=== PATIENT | female | born 1985 | race Caucasian/White ===

== ENCOUNTER 2016-09-20 15:29 | Emergency (ER) | payer MEDICAID ==
[~2016-09-20] VITALS: Ht 170.2 cm; Wt 59.9 kg
--- NOTE | 2016-09-20 16:13 | NUR ---
Pt evaluated by MD for tooth ache, a/o x 4, vss, nad noted, ambulates w/ steady gait. Patient discharged home in stable conditon. Written and verbal after care instructions given. Patient verbalizes understanding of instructions.
[2016-09-20 16:15] VITALS: BP 106/78
== END 2016-09-20 16:16 | disposition home or self-care (01) ==
LOC: ER 15:30
DX: K08.89 Other specified disorders of teeth and supporting structures (principal); J45.909 Unspecified asthma, uncomplicated; Z88.0 Allergy status to penicillin; Z88.6 Allergy status to analgesic agent; F17.200 Nicotine dependence, unspecified, uncomplicated
CPT/HCPCS: A4663

== ENCOUNTER 2016-11-15 14:08 | Emergency (ER) | payer SELFPAY ==
[~2016-11-15] VITALS: Ht 170.2 cm; Wt 56.7 kg
[2016-11-15 15:00] LABS: *URINE HCG, QUAL NEGATIVE (NEGATIVE)
[2016-11-15] MEDS ORDERED: HYDROCODONE/APAP 5-325MG TABLET PO ONE (15:00)
[2016-11-15] MEDS ORDERED: ONDANSETRON ODT 4 MG TAB.RAPDIS SL ONE (15:00)
[2016-11-15 15:01] LABS: *BILIRUBIN,URIN NEGATIVE (NEGATIVE); *BLOOD, URINE NEGATIVE (NEGATIVE); *CLARITY,URINE CLEAR (CLEAR); *COLOR,URINE LIGHT YELLOW (YELLOW); *KETONES,URINE NEGATIVE (NEGATIVE); *PROTEIN,URINE NEGATIVE (NEGATIVE); *UROBILINOGEN,URINE 0.2 E.U./dl (NORMAL); LEUKOCYTE ESTERASE ,URINE NEGATIVE (NEGATIVE); NITRITE, URINE NEGATIVE (NEGATIVE); PH,URINE 7.5 (5.0-8.0); UGLUCOSE NEGATIVE (NEGATIVE)
[2016-11-15 15:08] LABS: SQUAMOUS EPITHELIAL CELL,UR FEW /HPF (NONE SEEN); WBC,URINE 0-3 /HPF (0-3)
[2016-11-15] MEDS ORDERED: ONDANSETRON ODT 4 MG TAB.RAPDIS ONE (15:17)
[2016-11-15] MEDS ORDERED: HYDROCODONE/APAP 5-325MG TABLET ONE (15:18)
[2016-11-15] MEDS ORDERED: MORPHINE SULFATE 4 MG/1 ML DISP.SYRIN IM ONE (15:45)
[2016-11-15] MEDS ORDERED: MORPHINE SULFATE 4 MG/1 ML DISP.SYRIN ONE (16:00)
[2016-11-18 11:09] LABS: *GC NAA Negative (Negative); *TRIC.VAG. NAA Negative (Negative)
== END 2016-11-15 16:24 | disposition home or self-care (01) ==
LOC: ER 14:08
DX: R10.2 Pelvic and perineal pain (principal); J45.909 Unspecified asthma, uncomplicated; Z88.0 Allergy status to penicillin; Z88.6 Allergy status to analgesic agent; F17.200 Nicotine dependence, unspecified, uncomplicated
CPT/HCPCS: 76856; 81001; 84703; 87491; 96372; 99285; A4663; J2270; Q0162

== ENCOUNTER 2016-11-16 20:37 | Emergency (ER) | payer SELFPAY ==
[~2016-11-16] VITALS: Ht 172.7 cm; Wt 61.2 kg
[2016-11-16] MEDS ORDERED: ONDANSETRON 4 MG/2 ML VIAL IV ONE (21:00)
[2016-11-16] MEDS ORDERED: IV NORMAL SALINE 1000 ML BAG IV ONE (21:00)
[2016-11-16] MEDS ORDERED: HYDROMORPHONE 1 MG/1 ML DISP.SYRIN IV ONE ×2 (21:00→22:15)
[2016-11-16] MEDS ORDERED: HYDROMORPHONE 1 MG/1 ML DISP.SYRIN ONE ×2 (21:18→22:21)
[2016-11-16] MEDS ORDERED: ONDANSETRON 4 MG/2 ML VIAL ONE ×2 (21:19→22:21)
[2016-11-16 21:24] LABS: BASOPHILS % (AUTO) 0.5 % (0.0-2.0); EOSINOPHILS # (AUTO) 0.3 K/uL (0.0-0.7); HEMATOCRIT 41.2 % (37-47); HEMOGLOBIN 13.8 G/DL (12.0-16.0); LYMPHOCYTES # (AUTO) 2.1 K/UL (0.8-4.8); LYMPHOCYTES % (AUTO) 27.8 % (20.5-51.5); MEAN CORPUSCULAR HEMOGLOBIN 31.2 UUG (27.0-31.0); MEAN CORPUSCULAR HGB CONC 33 g/dL (32.0-37.0); MEAN CORPUSCULAR VOLUME 93.2 FL (81.0-99.0); MONOCYTES # (AUTO) 0.6 K/UL (0.1-1.30); MONOCYTES % (AUTO) 7.8 % (0.0-11.0); NEUTROPHILS # (AUTO) 4.4 K/UL (1.8-8.9); NEUTROPHILS % (AUTO) 59.9 % (38.5-71.5); PLATELET COUNT (AUTO) 102 K/UL (150-450); RED BLOOD CELL COUNT(AUTO) 4.42 MIL/UL (4.2-5.4); WHITE BLOOD COUNT (AUTO) 7.4 K/UL (4.0-11.2)
--- NOTE | 2016-11-16 21:28 | NUR ---
Pt ambulated to room with steady gait and changed into gown. Pt was seen here yesterday for RLQ pain and was told to return if the pain worsened. Pt sts she cant even touch her RLQ due to pain. Pt seen by Dr. Gold. IV established, labs drawn and sent. Pt medicated for pain and nausea, will monitor for effects of medication. Fluid bolus infusing freely to gravity. Pt resting in position of comfort for self.
[2016-11-16 21:33] LABS: BILIRUBIN,DIRECT 0.1 mg/dL (0.0-0.2); BILIRUBIN,TOTAL 0.4 mg/dL (0.2-1.0); CREATININE 0.8 mg/dL (0.6-1.3); POTASSIUM 3.8 mmol/L (3.5-5.1); TOTAL PROTEIN, SERUM 7.4 g/dL (6.4-8.2)
--- NOTE | 2016-11-16 21:41 | NUR ---
Pt to CT via jul[facility]
[2016-11-16 21:56] LABS: *BILIRUBIN,URIN NEGATIVE (NEGATIVE); *BLOOD, URINE NEGATIVE (NEGATIVE); *CLARITY,URINE CLEAR (CLEAR); *COLOR,URINE YELLOW (YELLOW); *KETONES,URINE NEGATIVE (NEGATIVE); *PROTEIN,URINE NEGATIVE (NEGATIVE); *UROBILINOGEN,URINE 0.2 E.U./dl (NORMAL); LEUKOCYTE ESTERASE ,URINE NEGATIVE (NEGATIVE); NITRITE, URINE NEGATIVE (NEGATIVE); PH,URINE 6.5 (5.0-8.0); UGLUCOSE NEGATIVE (NEGATIVE)
--- NOTE | 2016-11-16 21:59 | NUR ---
Pt returned from CT via gurney. Pt sts pain improved but only slightly. Pt requesting more pain medication. MD notified, awaiting further orders.
[2016-11-16 22:09] LABS: BACTERIA,URINE FEW /HPF (NONE SEEN); MUCUS,URINE FEW /LPF (0-FEW); SQUAMOUS EPITHELIAL CELL,UR MODERATE /HPF (NONE SEEN); WBC,URINE 0-3 /HPF (0-3)
[2016-11-16] MEDS ORDERED: ONDANSETRON IV *ER 4 MG/2 ML VIAL IV ONE (22:15)
--- NOTE | 2016-11-16 22:15 | NUR ---
Pt medicated for pain and nausea, will monitor for effects of medication. Pt resting in position of comfort for self. Friend at bedside.
--- NOTE | 2016-11-16 23:20 | NUR ---
Pt sts pain improved with medication. Pt stable for discharge per MD. IV dc'd, catheter intact. Drsg applied. No problems noted to site. Pt given ACI. Pt verbalized understanding of dc instructions. Pt ambulated out of er with steady gait and ride home.
[2016-11-16 23:46] VITALS: BP 113/59
== END 2016-11-16 23:20 | disposition home or self-care (01) ==
LOC: ER 20:37
DX: R10.31 Right lower quadrant pain (principal); R11.0 Nausea; F17.200 Nicotine dependence, unspecified, uncomplicated; Z88.0 Allergy status to penicillin; Z88.6 Allergy status to analgesic agent; J45.909 Unspecified asthma, uncomplicated
CPT/HCPCS: 36415; 74176; 80048; 80076; 81001; 83690; 85025; 96361; 96374; 96375; 96376; 99285; A4663; J1170 ×2; J2405 ×2; J7030